=== PATIENT | female | born 1985 | race Caucasian/White ===

== ENCOUNTER 2018-03-16 07:56 | Outpatient (CLI) ==
--- NOTE | 2018-03-16 08:38 | DI ---
EXAM: Sacrum and coccyx three view HISTORY: Pain COMPARISON: None FINDINGS: Sacroiliac joints intact. Sacral arcuate intact. Sacrum and coccyx appear normal. Bones appear normal. No focal soft tissue abnormality. Linear metallic density may represent umbilical or nament. IMPERSSION: No fracture or dislocation.
== END 2018-03-16 07:57 | disposition home or self-care (01) ==
LOC: RAD 07:56
PROVIDERS: ATTEND Internal Medicine
DX: M53.3 Sacrococcygeal disorders, not elsewhere classified (principal); Z51.81 Encounter for therapeutic drug level monitoring; Z79.899 Other long term (current) drug therapy
CPT/HCPCS: 36415; 80053; 84439; 84443; 85025